=== PATIENT | male | born 1985 | race Caucasian/White ===

== ENCOUNTER → 2024-08-30 14:09 | Outpatient (CLI) | payer OTHER, SELFPAY ==
--- NOTE | 2024-08-30 14:13 | DI.RAD.S_ITS ---
PROCEDURE: XR LUMBAR SPINE 2-3V INDICATIONS: BACK PAIN TECHNIQUE: 3 views of the lumbar spine were acquired. COMPARISON: None. FINDINGS: Five non rib-bearing lumbar vertebrae are present. Minimal levocurvature of the lumbar spine with the apex at L3. Otherwise, the lumbar lordosis is preserved. The vertebral body heights are preserved. The intervertebral disc heights are preserved. Mild-moderate facet arthropathy at the L4-L5 and L5-S1 levels. IMPRESSION: Mild lumbar osteoarthrosis, most conspicuous at L4-L5 and L5-S1. Dictated by: Raghav Olivarez M.D. on 08/30/2024 at 16:15 Approved by: Raghav Olivarez M.D. on 08/30/2024 at 16:16
== END ==
LOC: RAD 14:11
PROVIDERS: Referring Provider Chiropractor; Visit Provider Chiropractor
DX: S39.012A Strain of muscle, fascia and tendon of lower back, initial encounter (principal); M47.816 Spondylosis without myelopathy or radiculopathy, lumbar region; M47.817 Spondylosis without myelopathy or radiculopathy, lumbosacral region
CPT/HCPCS: 72100